=== PATIENT | male | born 1970 | race African-American/Black ===

== ENCOUNTER 2017-07-15 15:53 | Emergency (ER) | payer OTHER ==
[~2017-07-15] VITALS: Ht 185.4 cm; Wt 79.4 kg
[~2017-07-15 15:53] MED LIST: BACLOFEN20 M1 PO; BUPROPION XL150 MG; IBUPROFEN800 M1 PO; MOTRIN 600 MG600 MG PO; PERCOCET 325 MG1 TA2 PO; PERCOCET 5-3251 EACH PO; RISPERIDONE3 M1; TRAZODONE HCL300 MG PO; WELLBUTRIN XL150 M2 PO
[2017-07-15] MEDS ORDERED: WELLBUTRIN XL150 M2 PO ×2 (19:21→19:23)
[2017-07-15] MEDS ORDERED: OXYCODONE HCL5 M1 PO ×2 (19:21→19:23)
[2017-07-15] MEDS ORDERED: PROAIR HFA8.5 GM INH ×2 (19:21→19:23)
[2017-07-15] MEDS ORDERED: CYCLOBENZAPRINE10 M1 PO (19:23)
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
[2017-07-15 19:29] VITALS: BP 126/76
== END 2017-07-15 19:29 ==
LOC: ERH 15:53
DX: M54.5 Low back pain (principal)

== ENCOUNTER 2017-08-08 00:52 | Emergency (ER) | payer OTHER ==
[~2017-08-08] VITALS: Ht 185.4 cm; Wt 83.9 kg
[~2017-08-08 00:52] MED LIST changes: +CYCLOBENZAPRINE10 M1 PO; +MOBIC15 M1 PO; +OXYCODONE HCL5 M1 PO; +PROAIR HFA8.5 GM INH
[2017-08-08 00:59] VITALS: BP 139/85
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
== END 2017-08-08 01:40 ==
LOC: ERH 00:52
DX: F41.9 Anxiety disorder, unspecified (principal); F32.9 Major depressive disorder, single episode, unspecified; F14.10 Cocaine abuse, uncomplicated
CPT/HCPCS: 93005; 93010

== ENCOUNTER 2017-11-06 12:27 | Emergency (ER) | payer OTHER ==
[~2017-11-06] VITALS: Ht 185.4 cm; Wt 83.9 kg
[2017-11-06 13:08] VITALS: BP 138/74
== END 2017-11-06 16:00 | disposition admitted as inpatient to this hospital (09) ==
LOC: ERH 12:27
DX: R07.9 Chest pain, unspecified (principal)
CPT/HCPCS: 93005; 93010; 99281